=== PATIENT | female | born 1975 | race Caucasian/White ===

== ENCOUNTER → 2017-08-01 | Outpatient (CLI) | payer BC, MEDICARE ==
--- NOTE | 2017-08-01 12:37 | KCIC ---
CT LUMBAR SPINE WO CONTRAST dated 08/01/2017 11:00 AM Indication: Back pain, right-sided radiculopathy history of 2 back surgeries pseudoarthrosis Comparison: No comparison is available. Technique: Contiguous axial imaging of the lumbar spine performed with thin cut coronal and sagittal reconstruction. One or more of the following individualized dose reduction techniques were utilized for this examination: 1. Automated exposure control 2. Adjustment of the mA and/or kV according to patient size 3. Use of iterative reconstruction technique Findings: Mild retrolisthesis of L2 on L3 and L4 on L5. Sagittal alignment is otherwise anatomic. There is mild levoconvex scoliotic curvature with mild left lateral offset of L3 relative to L2. Vertebral body heights are maintained. Moderate hypertrophic change of the superior and inferior endplates throughout. No evidence of prior laminectomy at L4-L5 and right hemilaminotomy at L3-L4. Posterior fusion rods and transpedicular screws from L3 to L5. Hardware is intact. There is radiolucency along the bilateral pedicle screws at L5 measuring up to 4 mm on the right and 3 mm on the left. At L1-L2, mild broad-based posterior disc osteophyte complex with mild hypertrophic change of the facet joints. Thecal sac is mildly narrowed. Bilateral foramen are adequate. At L2-L3, there is severe disc space narrowing and disc desiccation and subtle endplate sclerosis. Mild broad-based posterior disc osteophyte complex with retrolisthesis. Mild hypertrophic change of the facet joints/ligament flavum. This examination with prominent posterior epidural fat results in mild narrowing of the thecal sac, estimated at about 9 mm. Possible superimposed right central/subarticular disc protrusion contributes to moderate right lateral recess stenosis and moderate proximal right foraminal stenosis. The left foramen is mildly narrowed. At L3-L4, evidence of prior right hemilaminotomy. No apparent focal disc herniation. The bony canal and foramen are adequate. At L4-L5, evidence of prior laminectomy with hypertrophic change of the facet joints. The central canal is adequate. There is mild to moderate left foraminal stenosis. The right foramen is minimally narrowed. At L5-S1, no significant posterior bulge. Central canal and right foramen are adequate. Mild narrowing of the left foramen. Images of the retroperitoneum show no significant abnormality. IMPRESSION: 1. Posterior lateral fusion from L3 to L5. There is some radiolucency along the pedicle screw margins at the L5 level that is indeterminate but could signify hardware loosening. Recommend comparison to any prior exams to assess for interval change. 2. Multilevel spondylosis. There is mild central stenosis at L1-L2 and L2-L3 with varying degrees of mild to moderate foraminal narrowing throughout. Please see above report for full details. Electronically signed by: Marco Goldsmith MD (08/01/2017 12:34 PM) [id number]
== END | disposition home or self-care (01) ==
LOC: KCIC CT 11:09
PROVIDERS: ATTEND Neurological Surgery
DX: S32.009A Unspecified fracture of unspecified lumbar vertebra, initial encounter for closed fracture (principal); X58.XXXA Exposure to other specified factors, initial encounter; Y93.89 Activity, other specified; Y92.89 Other specified places as the place of occurrence of the external cause; Y99.8 Other external cause status
CPT/HCPCS: 72131

== ENCOUNTER → 2017-09-11 | Outpatient (CLI) | payer BC, MEDICARE ==
[~2017-09-11] MED LIST: CYAN1TAB28 PO; DULO60CA6 PO; GABA600T2 PO; MULT1TAB52 PO; PANT40TA3 PO; TRAZ50TA15 PO
[2017-09-11 09:59] LABS: BASO % 0 % (0-3); EOS % 5 % (0-3); HEMATOCRIT 37.9 % (36.0-47.0); HEMOGLOBIN 12.6 g/dL (12.0-15.5); LYMPH # 1.3 x10^3/uL (1.0-4.8); LYMPH % 24 % (24-48); MEAN CORPUSCULAR HEMOGLOBIN 32 pg (25-35); MEAN CORPUSCULAR HGB CONC 33 g/dL (31-37); MEAN CORPUSCULAR VOLUME 97 fL (79-100); MONO % 5 % (0-9); NEUT % 65 % (31-73); PLATELET COUNT 191 x10^3/uL (140-400); RED BLOOD COUNT 3.91 x10^6/uL (3.50-5.40); RED CELL DISTRIBUTION WIDTH 13.5 % (11.5-14.5); WHITE BLOOD COUNT 5.2 x10^3/uL (4.0-11.0)
[2017-09-11 10:11] LABS: PROTHROMBIN TIME PATIENT 12.3 SEC (11.7-14.0)
[2017-09-11 10:21] LABS: ALBUMIN 3.4 g/dL (3.4-5.0); ALBUMIN/GLOBULIN RATIO 0.9 (1.0-1.7); CREATININE 0.8 mg/dL (0.6-1.0); GFR 78.3; POTASSIUM 3.8 mmol/L (3.5-5.1); TOTAL BILIRUBIN 0.7 mg/dL (0.2-1.0); TOTAL PROTEIN 7.1 g/dL (6.4-8.2)
== END | disposition home or self-care (01) ==
LOC: SURGPAT 09:25
PROVIDERS: ATTEND Neurological Surgery
DX: Z01.818 Encounter for other preprocedural examination (principal); M54.16 Radiculopathy, lumbar region
CPT/HCPCS: 36415; 80053; 85025; 85610; 85730; 87641

== ENCOUNTER → 2018-07-24 | Outpatient (CLI) | payer BC, MEDICARE ==
[2017-09-23 11:00] VITALS: BP 106/71
[~2018-07-24] MED LIST changes: +DOCU-109 PO; +HYDR25TA PO; +MECL25TA3 PO; +METH750T2 PO; +OXYC1TAB7 PO; +TRAZ-85 PO; -TRAZ50TA15 PO; +VERA240C2 PO
[2018-07-24 14:19] LABS: BASO % 0 % (0-3); EOS # 0.1 x10^3/uL (0.0-0.7); EOS % 1 % (0-3); HEMATOCRIT 35.3 % (36.0-47.0); LYMPH # 2.1 x10^3/uL (1.0-4.8); LYMPH % 39 % (24-48); MEAN CORPUSCULAR HEMOGLOBIN 33 pg (25-35); MEAN CORPUSCULAR HGB CONC 34 g/dL (31-37); MEAN CORPUSCULAR VOLUME 98 fL (79-100); MONO # 0.2 x10^3/uL (0.0-1.1); MONO % 5 % (0-9); NEUT % 55 % (31-73); PLATELET COUNT 222 x10^3/uL (140-400); RED CELL DISTRIBUTION WIDTH 12.9 % (11.5-14.5); WHITE BLOOD COUNT 5.4 x10^3/uL (4.0-11.0)
[2018-07-24 14:29] LABS: PROTHROMBIN TIME PATIENT 12.7 SEC (11.7-14.0)
[2018-07-24 14:47] LABS: ALBUMIN 3.6 g/dL (3.4-5.0); CALCIUM 9.4 mg/dL (8.5-10.1); CREATININE 0.9 mg/dL (0.6-1.0); GFR 68.3; POTASSIUM 3.8 mmol/L (3.5-5.1); TOTAL BILIRUBIN 0.5 mg/dL (0.2-1.0); TOTAL PROTEIN 7.3 g/dL (6.4-8.2)
== END | disposition home or self-care (01) ==
LOC: SURGPAT 13:16
PROVIDERS: ATTEND Neurological Surgery
DX: Z01.818 Encounter for other preprocedural examination (principal); M51.16 Intervertebral disc disorders with radiculopathy, lumbar region; M47.896 Other spondylosis, lumbar region
CPT/HCPCS: 36415; 80053; 85025; 85610; 85730; 87641